=== PATIENT | female | born 1980 | race Caucasian/White ===

== ENCOUNTER 2018-10-05 17:02 | Emergency (ER) | payer MEDICAID ==
[~2018-10-05] VITALS: Ht 167.6 cm; Wt 68.2 kg
[2018-10-05 17:06] VITALS: Ht 167.6 cm; Wt 68.2 kg
[2018-10-05 17:35] LABS: BASOPHILS 0.4 % (0-2); EOSINOPHILS 0.8 % (0-7); HEMATOCRIT 39.2 % (36.0-48.0); HEMOGLOBIN 13.1 g/dL (12-16); IMMATURE GRANULOCYTES 0.3 % (0-5); LYMPHOCYTES 14.9 % (15-50); MCH 31.7 pg (26.0-34.0); MCHC 33.4 g/dL (31.0-37.0); MCV 94.9 fL (80.0-100.0); MEAN PLATELET VOLUME 10.3 fL (7.4-10.4); MONOCYTES 8.7 % (2-11); NEUTROPHILS 74.9 % (40-80); PLATELET COUNT 265 10x3/uL (130-400); RBC 4.13 10x6/uL (4.00-5.40); RDW 12.6 % (11.5-14.5); WBC 10.5 10x3/uL (4.8-10.8)
[2018-10-05 17:52] LABS: ALBUMIN 3.5 g/dL (3.4-5.0); ALKALINE PHOSPHATASE 105 U/L (46-116); ALT (SGPT) 24 U/L (10-68); BILIRUBIN - TOTAL 0.68 mg/dL (0.2-1.3); CALC OSMOLALITY 273 mosm/kg (275-300); CALCIUM 8.6 mg/dL (8.5-10.1); CARBON DIOXIDE 20.2 mmol/L (21.0-32.0); CHLORIDE - SERUM 103 mmol/L (98-107); CREATININE - SERUM 0.9 mg/dL (0.6-1.3); GLUCOSE 111 mg/dL (74-106); POTASSIUM - SERUM 3.6 mmol/L (3.5-5.1); PROTEIN - SERUM 7.9 g/dL (6.4-8.2); SODIUM 137 mmol/L (136-145); UREA NITROGEN 9 mg/dL (7-18); eGFR NON AFRICAN AMERICAN 75 mL/min (90-120)
[2018-10-05 17:58] LABS: TROPONIN-I < 0.017 ng/mL (0.000-0.060)
[2018-10-05] MEDS ORDERED: KLONOPIN0.5 MG PO (19:28)
[2018-10-05] MEDS ORDERED: ALBUTEROL SULF8.5 GM INH (19:28)
[2018-10-05] MEDS ORDERED: MEDROL DOSE PACK4 MG PO (19:28)
[2018-10-05 20:11] VITALS: BP 144/87
== END 2018-10-05 20:13 | disposition home or self-care (01) ==
LOC: D.ER 17:02
PROVIDERS: Emergency Medicine
DX: D86.9 Sarcoidosis, unspecified (principal); F41.9 Anxiety disorder, unspecified; F17.200 Nicotine dependence, unspecified, uncomplicated

== ENCOUNTER 2019-05-12 15:50 | Emergency (ER) | payer MEDICAID ==
[~2019-05-12] VITALS: Ht 167.6 cm; Wt 72.7 kg
[~2019-05-12 15:50] MED LIST: ALBUTEROL SULF8.5 GM INH; KLONOPIN0.5 MG PO; MEDROL DOSE PACK4 MG PO
[2019-05-12 15:57] VITALS: Ht 167.6 cm; Wt 72.7 kg
[2019-05-12 16:37] LABS: BASOPHILS 0.5 % (0-2); EOSINOPHILS 2.1 % (0-7); HEMATOCRIT 43.3 % (36.0-48.0); HEMOGLOBIN 14.9 g/dL (12-16); IMMATURE GRANULOCYTES 0.5 % (0-5); MCH 32.1 pg (26.0-34.0); MCHC 34.4 g/dL (31.0-37.0); MCV 93.3 fL (80.0-100.0); MONOCYTES 6.2 % (2-11); NEUTROPHILS 67.7 % (40-80); PLATELET COUNT 250 10x3/uL (130-400); RBC 4.64 10x6/uL (4.00-5.40); RDW 13.2 % (11.5-14.5); WBC 9.7 10x3/uL (4.8-10.8)
[2019-05-12 16:43] LABS: APPEARANCE HAZY (CLEAR); BILIRUBIN NEGATIVE (NEGATIVE); COLOR YELLOW (YELLOW); GLUCOSE NEGATIVE (NEGATIVE); KETONE NEGATIVE (NEGATIVE); NITRITE NEGATIVE (NEGATIVE); PROTEIN TRACE mg/dL (NEGATIVE); UROBILINOGEN NORMAL (NORMAL)
[2019-05-12 16:45] LABS: BACTERIA MANY /hpf (NONE SEEN); RED CELLS - URINE 0-5 /hpf (0-5)
[2019-05-12 16:46] LABS: MUCUS NONE SEEN /lpf (NONE SEEN)
[2019-05-12 16:50] LABS: ALBUMIN 3.8 g/dL (3.4-5.0); ANION GAP 15.1 mmol/L (8-16); BILIRUBIN - TOTAL 0.68 mg/dL (0.2-1.3); CALCIUM 9.6 mg/dL (8.5-10.1); CREATININE - SERUM 1.1 mg/dL (0.6-1.3); POTASSIUM - SERUM 4.1 mmol/L (3.5-5.1)
[2019-05-12] MEDS ORDERED: ULTRAM50 MG PO (18:52)
[2019-05-12 20:00] VITALS: BP 132/68
[2019-05-12 21:02] LABS: HCG URINE NEGATIVE (NEGATIVE)
[2019-06-24] MEDS ORDERED: KLONOPIN1 MG PO (10:58)
[2019-06-24] MEDS ORDERED: ZOLOFT100 MG PO (10:58)
[2019-06-24] MEDS ORDERED: LEVOTHYROXINE50 MCG PO (10:58)
[2019-06-24] MEDS ORDERED: RISPERDAL1 MG PO (10:58)
[2019-06-24] MEDS ORDERED: ALBUTEROL SULF8.5 GM INH (11:00)
== END 2019-05-12 20:00 | disposition home or self-care (01) ==
LOC: D.ER 15:50
PROVIDERS: Emergency Medicine
DX: N83.201 Unspecified ovarian cyst, right side (principal)

== ENCOUNTER → 2019-06-26 07:10 | Day surgery (SDC) | payer MEDICAID ==
[2019-06-24 11:47] LABS: BASOPHILS 0.4 % (0-2); EOSINOPHILS 2.1 % (0-7); HEMATOCRIT 39.5 % (36.0-48.0); HEMOGLOBIN 13.9 g/dL (12-16); IMMATURE GRANULOCYTES 0.6 % (0-5); LYMPHOCYTES 25.4 % (15-50); MCH 32.9 pg (26.0-34.0); MCHC 35.2 g/dL (31.0-37.0); MCV 93.4 fL (80.0-100.0); MONOCYTES 9.6 % (2-11); NEUTROPHILS 61.9 % (40-80); PLATELET COUNT 232 10x3/uL (130-400); RBC 4.23 10x6/uL (4.00-5.40); RDW 13.3 % (11.5-14.5); WBC 8.5 10x3/uL (4.8-10.8)
[~2019-06-26] VITALS: Ht 167.6 cm; Wt 76.7 kg
--- NOTE | ~2019-06-26 | OP ---
PATIENT NAME: SHAYNA FERNANDEZ MEDICAL RECORD: [id number] :84 LOCATION:D.OPS ADMISSION DATE: SURGEON: CHRISSY ENRIQUEZ DO DATE OF OPERATION: 06/26/2019 PREOPERATIVE DIAGNOSIS: Suspected endometriosis. POSTOPERATIVE DIAGNOSIS: Confirmed endometriosis. PRIMARY SURGEON: Chrissy Enriquez DO PROCEDURE PERFORMED: Diagnostic laparoscopy, ablation of endometriosis. FINDINGS: Normal-appearing uterus, bilateral fallopian tubes, bilateral ovaries. Endometriosis implant noted on the right uterosacral ligament. SPECIMENS: None. ESTIMATED BLOOD LOSS: 2 cc. IV FLUIDS: 650 cc. URINE OUTPUT: 200 cc clear urine. COMPLICATIONS: None. CONDITION: Stable. DESCRIPTION OF PROCEDURE: The risks, benefits, alternatives and indications of the procedure were discussed with the patient. She voiced understanding of the procedure and signed the consent. She was taken to the OR where general anesthesia was administered and found to be adequate. She was placed in the dorsal lithotomy position. She was prepped and draped in the normal sterile fashion. A sponge stick was placed in the vagina as a uterine manipulator. Attention was then turned to the abdomen. Gloves were changed. A Veress needle was used to enter the abdomen with correct placement confirmed with saline drop test. Pneumoperitoneum was achieved to 15 mmHg. A 5-mm port was placed in the umbilicus under direct laparoscopic visualization and intraoperative survey revealed normal appearing uterus, bilateral fallopian tubes, bilateral ovaries. There was a small endometriosis implant noted on the right uterosacral ligament. At that time, a 5-mm port was placed in the left lower quadrant under direct laparoscopic visualization and an L-hook was used to fulgurate and ablate the endometriosis implant with good hemostasis noted. All instruments were removed from the abdomen. Pneumoperitoneum was released. The port sites were closed with 3-0 Monocryl and Dermabond with good hemostasis noted. The patient tolerated the procedure well and she was awakened and taken to the recovery room in stable condition. TRANSINT:[id number] Voice Confirmation ID: [id number] DOCUMENT ID: [id number] OPERATIVE REPORT [id number] SHAYNA FERNANDEZ CHRISSY ENRIQUEZ DO CC: [id number] DICTATION DATE: 06/26/19 1056 PPAP COORDINATOR: 06/26/19 [id number] [place] [address]
[~2019-06-26 07:10] MED LIST changes: +KLONOPIN1 MG PO; +LEVOTHYROXINE50 MCG PO; +RISPERDAL1 MG PO; +ULTRAM50 MG PO; +ZOLOFT100 MG PO
[2019-06-26 08:53] VITALS: BP 105/76; Ht 167.6 cm; Wt 76.7 kg
[2019-06-26 09:05] LABS: HCG URINE NEGATIVE (NEGATIVE)
--- NOTE | 2019-06-26 11:19 | NUR ---
DERMABOND TO SITES X2 TO LOWER ABDOMEN
--- NOTE | 2019-06-26 13:53 | NUR ---
0835 NURSING MEAT [employer]ER, NEHEMIAH SINGLETON,KORI, NOTIFIED OF POSITIVE SUICIDE RISK. 0908 PT HAS NOT HAD EVALUATION FROM PSYCHIATRIC NURSE. NEHEMIAH SINGLETON RN CALLED FOR UPDATE ON WHEN TO EXPECT THE PSYCHIATRIC VISIT. RESPONSE IS THAT THE UNIT IS BUSY AT THE MOMENT. 0912 PT TAKEN TO SURGERY AND IS TO RECEIVE PSYCHIATRIC EVALUATION ON RETURN TO OUTPATIENT DEPT AND PRIOR TO DISCHARGE.
== END | disposition home or self-care (01) ==
LOC: D.OPS 07:10 → D.PAN 08:30 → D.OPS 08:45
PROVIDERS: ATTEND Student in an Organized Health Care Education/Training Program
DX: N80.8 Other endometriosis (principal)

== ENCOUNTER → 2019-10-25 09:52 | Outpatient (CLI) | payer MEDICAID ==
[2019-06-26 08:53] VITALS: BMI 27.3
== END | disposition home or self-care (01) ==
LOC: D.MRI 09:52
PROVIDERS: ATTEND Student in an Organized Health Care Education/Training Program
DX: E22.1 Hyperprolactinemia (principal)

== ENCOUNTER 2019-10-30 07:00 | Day surgery (SDC) | payer MEDICAID ==
[2019-10-28 11:12] LABS: BASOPHILS 0.5 % (0-2); EOSINOPHILS 1.3 % (0-7); HEMATOCRIT 38.7 % (36.0-48.0); HEMOGLOBIN 12.8 g/dL (12-16); IMMATURE GRANULOCYTES 0.4 % (0-5); MCH 33.3 pg (26.0-34.0); MCHC 33.1 g/dL (31.0-37.0); MCV 100.8 fL (80.0-100.0); MEAN PLATELET VOLUME 10.2 fL (7.4-10.4); MONOCYTES 10.8 % (2-11); PLATELET COUNT 234 10x3/uL (130-400); RBC 3.84 10x6/uL (4.00-5.40); RDW 14.1 % (11.5-14.5); WBC 8.2 10x3/uL (4.8-10.8)
[~2019-10-30] VITALS: Ht 167.6 cm; Wt 74.8 kg
--- NOTE | ~2019-10-30 | OP ---
PATIENT NAME: SHAYNA FERNANDEZ MEDICAL RECORD: [id number] :82 LOCATION:D.OPS ADMISSION DATE: SURGEON: CHRISSY ENRIQUEZ DO DATE OF OPERATION: 10/30/2019 PREOPERATIVE DIAGNOSIS: Abnormal uterine bleeding. POSTOPERATIVE DIAGNOSIS: Abnormal uterine bleeding. PRIMARY SURGEON: Chrissy Enriquez DO ANESTHESIA: Mir Bonilla CRNA PROCEDURE: Hysteroscopy, dilation and curettage. FINDINGS: Normal-appearing external genitalia. Normal-appearing vaginal vault. Normal-appearing cervix. Uterus sounded to 8 cm. Normal-appearing thermal effect of the endometrium status post ablation. Unable to visualize fallopian tube ostia. SPECIMENS: Endometrial curettings. ESTIMATED BLOOD LOSS: Minimal. INTRAVENOUS FLUIDS: 400 cc. COMPLICATIONS: None. CONDITION: Stable. DESCRIPTION OF PROCEDURE: The risks, benefits, alternatives, and indications of the procedure were discussed with the patient. She voiced understanding of the procedure and signed a consent. She was taken to the OR where general anesthesia was administered and found to be adequate. She was placed in the dorsal lithotomy position. She was prepped and draped in the normal sterile fashion. A speculum was placed in the posterior aspect of the vagina. A single-tooth tenaculum was used to grasp the anterior lip of the cervix. The uterus was sounded to 8 cm. The cervix was further dilated to accommodate the hysteroscope. The hysteroscope was inserted into the uterus and normal thermal effect from endometrial ablation was noted and unable to visualize fallopian tube ostia due to the endometrial ablation. The hysteroscope was removed and the cervix was further dilated; however, unable to be dilated enough for a sharp curette, so a Kevorkian curette was used to take a sample of the endometrium and the endometrial curettings sent to pathology. All instruments were removed from the uterus. The tenaculum was removed from the cervix with good hemostasis noted. All instrument, lap, and sponge counts were correct times 2. The patient tolerated the procedure well and she was awakened and taken to the recovery room in stable condition. TRANSINT:[id number] Voice Confirmation ID: [id number] DOCUMENT ID: [id number] OPERATIVE REPORT [id number] SHAYNA FERNANDEZ CHRISSY ENRIQUEZ DO CC: [id number] DICTATION DATE: 10/30/19 1005 [employer] SPRING CUTTER: 10/30/19 1346 [facility] 10/30/19 [facility] [address] [id number]
[2019-10-30 08:04] LABS: HCG URINE NEGATIVE (NEGATIVE)
[2019-10-30 08:09] VITALS: BP 110/80; Ht 167.6 cm; Wt 74.8 kg
--- NOTE | 2019-10-30 09:02 | NUR ---
PT IS A MODERATE RISK PER ASSESSMENT. PT DOES EXPRESS REASONS FOR LIVING. PT STATED, "I JUST HAVE THOUGHTS THAT POP INTO MY HEAD. I DID TRY TO OVERDOSE 2 YEARS AGO, BUT I CALLED MY FRIEND. MY FRIEND MADE ME VOMIT THEM UP." PT STATED THAT SHE HAS NOT GOTTEN TREATMENT, AND SHE WAS NEVER SEEN BY A DOCTOR AFTER HER ATTEMPT. PT DENIES SI AT THIS TIME. PT IS PLEASANT AND COOPERATIVE. NO SIGNS OF DEPRESSION. DR. CROCKETT NOTIFIED AND NO SITTER ORDERED. RESOURCES GIVEN TO PT AND PT VERBALIZED UNDERSTANDING.
--- NOTE | 2019-10-30 11:19 | NUR ---
1100 IV REMOVED AND PRESSURE HELD. INSTRUCTIONS GIVEN.
--- NOTE | 2019-10-30 11:49 | NUR ---
1143 PT LEFT WITH FRIEND W/O CALLING DESK WHEN READY. ASKED PT TO CALL WHEN RIDE HERE
== END 2019-10-30 11:50 | disposition home or self-care (01) ==
LOC: D.OPS 07:00 → D.PAN 08:00 → D.OPS 08:00 → D.PAN 09:15 → D.OPS 09:15
PROVIDERS: ATTEND Student in an Organized Health Care Education/Training Program
DX: N93.9 Abnormal uterine and vaginal bleeding, unspecified (principal)

== ENCOUNTER 2020-02-17 19:34 | Emergency (ER) | payer MEDICAID ==
[~2020-02-17] VITALS: Ht 167.6 cm; Wt 72.6 kg
[2020-02-17 19:45] VITALS: Ht 167.6 cm; Wt 72.6 kg
[2020-02-17 21:09] VITALS: BP 147/87
== END 2020-02-17 21:09 | disposition home or self-care (01) ==
LOC: D.ER 19:34
DX: D86.0 Sarcoidosis of lung (principal); F17.200 Nicotine dependence, unspecified, uncomplicated; R06.02 Shortness of breath; E07.9 Disorder of thyroid, unspecified; R05 Cough